=== PATIENT | male | born 1960 | race Caucasian/White ===

== ENCOUNTER 2016-09-09 11:01 | Emergency (ER) | payer OTHER, BC ==
--- NOTE | 2016-09-09 11:26 | ERNOTE ---
<Koki eLe - Last Filed: 09/09/16 13:21> Abdominal HPI - Narrative Date of Service: 09/09/16 - General Chief Complaint: Abdominal Pain Time Seen by Provider: 09/09/16 11:12 Source: patient Exam Limitations: no limitations - Immun/Allergies/Home Medications Immunizatons: IMMUNIZATION HX Immunizations Up to Date Yes Allergies/Adverse Reactions: Allergies morphine Adverse Reaction (Verified 09/09/16 11:11) Other sweatin, spinning Home Medications: HOME MEDICATIONS Atorvastatin Calcium 10 mg PO DAILY 09/09/16 [Last Taken Unknown] Colchicine 0.6 mg PO DAILY 09/09/16 [Last Taken Unknown] Cyclobenzaprine HCl 10 mg PO TID 09/09/16 [Last Taken Unknown] Gabapentin 100 mg PO TID 09/09/16 [Last Taken Unknown] Metoprolol Succinate [Toprol Xl] 100 mg PO BID 09/09/16 [Last Taken Unknown] OXcarbazepine [Oxcarbazepine] 300 mg PO BID 09/09/16 [Last Taken Unknown] Olmesartan Medoxomil [Benicar] 40 mg PO DAILY 09/09/16 [Last Taken Unknown] metFORMIN HCL [Metformin HCl ER] 1,000 mg PO DAILY 09/09/16 [Last Taken Unknown] oxyCODONE HCL/ACETAMINOPHEN [Percocet 10-325 mg Tablet] 1 each PO Q6H 09/09/16 [ Last Taken Unknown] rOPINIRole HCL [Requip] 0.5 mg PO HS 09/09/16 [Last Taken Unknown] - History of Present Illness Narrative: Pt. comes in with c/o mid abdominal pain that pt. has had for months but worsened after lifting a case of cans at work. Pt. denies any SOB, CP, NVD, constipation, fevers, chills, recent illness, prehospital treatment, alleviating factors but does state that movement exacerbates the pain. Review of Systems - Review of Systems Constitutional: Present: no symptoms reported. Absent: recent illness, fever, chills, weakness, fatigue, malaise EYE: Present: no symptoms reported ENT: Present: no symptoms reported Respiratory: Present: no symptoms reported. Absent: shortness of breath, cough , wheezing Cardiology: Present: no symptoms reported. Absent: chest pain, palpitations, edema Gastrointestinal/Abdominal: Present: abdominal pain - mid. Absent: nausea, vomiting, diarrhea Genitourinary: Present: no symptoms reported Musculoskeletal: Present: no symptoms reported. Absent: back pain, joint pain Skin: Present: no symptoms reported Neurological: Present: no symptoms reported Endocrine: Present: no symptoms reported Hematologic/Lymphatic: Present: no symptoms reported All Other Systems: All systems neg except as marked - Patient's Past Medical History Patient History - Medical: Chronic Pain, Diabetes Type 2 Patient History - Cardiac/Respiratory: Hypertension, Hyperlipidemia Patient History - Cancer: No Hx of Cancer Patient History - Surgical Procedures: Orthopedic - Social History Smoking Status: Never smoker Have you smoked in the past 12 months: No - Immunizations Immunizations Up to Date: Yes Physical Exam - Physical Exam General Appearance: Present: wd/wn, alert, no apparent distress Eye Exam: Normal inspection: bilateral, PERRL: bilateral, EOMI: bilateral Ears, Nose, Throat: Present: normal ENT inspection, normal pharynx Neck: Present: normal inspection, nontender. Absent: lymphadenopathy (R), lymphadenopathy (L) Respiratory: Present: no respiratory distress, normal breath sounds, no accessory muscle use, chest nontender, lungs clear Cardiovascular/Chest: Present: regular rate, rhythm, no murmur, normal peripheral pulses Gastrointestinal/Abdominal: Present: normal bowel sounds, no organomegaly, tenderness - throughout, distended, hernia - lower ventral or umbilical. Absent : rebound Back Exam: Present: normal inspection, normal range of motion, no CVA tenderness , no vertebral tenderness Extremity Exam: Present: normal inspection, non-tender, normal range of motion, no edema Neurological Exam: Present: alert, oriented, normal mood/affect, no motor/ sensory deficits, sustainability officer II-XII nml as tested, normal cerebellar test Skin Exam: Present: normal color, warm/dry. Absent: pallor, skin rash ED Progress - Date and Time Seen: Date and Time: 09/09/16 12:[address] Beltrán and he recommends obtaining CT scan. - Results and Orders Patient's Lab Results:: I have reviewed the patient's lab results. - Vital Signs Patient's Vital Signs:: I have reviewed the patient's vital signs. Vital Signs: Vital Signs 09/09/16 11:05 Temperature 36.6 C Pulse Rate 89 Respiratory 14 Rate Blood Pressure 154/99 O2 Sat by Pulse 95 Oximetry - X-Ray X-Ray #1 X-Ray: abdomen Interpretation: Reviewed by me X-ray Comments: unable to evaluate properly due to pt. body habitus but non obstructive bowel gas pattern identified. - Progress/Reassessment Chief Complaint: Abdominal Pain - Transfer of Care Physician Sign Out: Koki Lee Receiving Physician: Jasiel Gaspar Pending Results: CT/MRI results Departure - Departure Clinical Impression: Constipation due to opioid therapy Abdominal pain Qualifiers: Abdominal location: unspecified location Qualified Code(s): R10.9 - Unspecified abdominal pain Disposition: Home Follow Up Needed Condition: Stable Instructions: Constipation, Adult, [id number], Hernia, Adult, [id number], Form - Excuse from Work, School, or Physical Activity Additional Instructions: Continue all previous home medications as directed. Follow-up with your primary care physician as needed. He may need to take medications to help promote bowel movements. Return to the emergency room if symptoms return or persist. Referrals: Bridger Headley MD [Primary Care Provider] - <Jasiel Gaspar - Last Filed: 09/09/16 15:32> Abdominal HPI - Immun/Allergies/Home Medications Immunizatons: IMMUNIZATION HX Immunizations Up to Date Yes ED Progress - Vital Signs Vital Signs: Vital Signs 09/09/16 09/09/16 09/09/16 11:05 11:50 12:24 Temperature 36.6 C 36.5 C Pulse Rate 89 95 89 Respiratory 14 16 16 Rate Blood Pressure 154/99 150/99 150/88 O2 Sat by Pulse 95 96 96 Oximetry 09/09/16 09/09/16 12:53 13:19 Temperature Pulse Rate 92 89 Respiratory 16 Rate Blood Pressure 134/99 161/89 O2 Sat by Pulse 95 96 Oximetry - EKG EKG: NSR EKG read: Reviewed by me EKG Comments: reviewed and interpreted by ER Attending - X-Ray X-Ray #1 X-ray Comments: Abdomen Flat W/ Upright *: Underpenetrated film due to patient's body habitus. Multiple images obtained due to patient's body habitus. Surgical clips seen in the right upper quadrant of the abdomen. No subdiaphragmatic free air. No abnormal dilation of large or small bowel. Rounded calcifications with central lucencies within the right side of the pelvis most likely phleboliths. Osseous structures are intact. Degenerative changes of the thoracolumbar spine and bilateral hips noted. IMPRESSION: 1. Nonobstructive bowel gas pattern. 2. Additional comments as above. Electronically signed by Lorrie Shen M.D.. - CT/Ultrasound CT/Ultrasound Narrative: [facility] PATIENT RADIOLOGY STUDY REPORT Patient Patient Name:HOLA JIMENEZ Date: 1960 Sex: M Order Number: [id number] Unique Exam ID: [id number] Exam Requested: ABDPELW - CT Abdomen/Pelvis W/ Contrast Date Scheduled: Study Priority: Requesting Service: Requesting Physician: Koki Lee Reason for Exam: large hiatal hernia, felt tearing and enlarging Radiological Report : Exam Date: 09/09/2016 12:02 Ordering Physician: Koki Lee Indication: large hiatal hernia, felt tearing and enlarging Comparison: Plain film same day Technique: CT Abdomen/Pelvis W/ Contrast Findings: Lung bases are grossly clear. There is fatty infiltration of the liver. No focal hepatic parenchymal enhancement. There is a calcified granuloma within the liver. No intrahepatic biliary ductal dilatation. The gallbladder is surgically absent. The pancreas is unremarkable. The spleen is within normal limits. Adrenal glands are also within normal limits. Kidneys enhance homogenously and excrete symmetrically. No evidence for nephrolithiasis or obstructive uropathy. There are likely benign cysts seen within both mid poles. Vasculature is unremarkable. No evidence for large hiatal hernia. Stomach is decompressed limiting evaluation but grossly unremarkable. No evidence for intestinal obstruction appreciated. No pericolonic inflammatory change. There is diverticulosis. Bladder is unremarkable. Prostate is normal. No free air or free fluid. No loculated fluid collections. There is a fat- containing ventral hernia measuring approximately 4 cm. Osseous structures are intact. No adenopathy. IMPRESSION: 1. No acute intra-abdominal or pelvic process 2. Fatty infiltration of the liver 3. 4 cm ventral fat-containing hernia 4. For the remainder of chronic findings please see above Electronically signed by Niko Dickey M.D.. - Progress/Reassessment Progress:: Improved Plan - Plan Plan: try to have a BM. follow up with PCP.
[2016-09-09 11:32] LABS: Hemoglobin 15.2 gm/dL (13.5-18.0); Mean Cell Volume 90.7 fl (78-100); Mean Corpuscular Hemoglobin 31.3 pg (27-31); Mean Corpuscular Hgb Conc 34.5 g/dl (32-36); Neutrophil % 51.8 % (42-75.0); Platelet Count 199 K/mm3 (150-450); Red Blood Count 4.85 M/mm3 (4.7-6.0); Red Cell Distribution Width 12.1 % (11.5-14.0); White Blood Count 7.7 K/mm3 (4.0-10.5)
[2016-09-09 11:41] LABS: Urine Bilirubin Negative (NEGATIVE); Urine Blood Negative /ul (NEGATIVE); Urine Ketone Negative (NEGATIVE); Urine Nitrite Negative (NEGATIVE); Urine Protein Negative (NEGATIVE); Urine Specific Gravity >=1.030 SP.GR. (1.005-1.030); Urine Urobilinogen Normal (NORMAL); Urine pH 5.5 pH (5.0-7.0)
[2016-09-09 11:47] LABS: Urine Appearance Clear; Urine Bacteria TRACE; Urine Color Yellow; Urine RBC None Seen /hpf (0-5)
[2016-09-09 11:48] LABS: Albumin * 3.9 gm/dl (3.4-5.0); BUN/Creatinine Ratio 11.8 (9.0-21.6); Bilirubin, Total 0.4 mg/dL (0.0-1.1); Ca. Corrected For Albumin 8.7 mg/dL (8.4-10.2); Calcium * 8.9 mg/dL (7.9-10.9); Potassium 4.2 mmol/L (3.4-4.6); Total Protein 7.3 gm/dL (6.2-8.2)
[2016-09-09 11:52] LABS: Anion Gap 16.7 mmol/L (6.8-13.8); Carbon Dioxide 23.5 mmol/L (24-32.6)
[2016-09-09] MEDS ORDERED: DIATRIZOATE MEGLU/DIATRIZO SOD 30 ML BTL PO ONE (12:06)
--- OUTSIDE RECORDS SUMMARY | 2016-09-09 12:07 | XMS REPORT | Continuity of Care Document ---
:1960 Author Organization [facility] Address [address] [place] [address] Phone [phone] Care Team Providers Name Role Phone Stanley Lemons Primary Care Provider [phone] Source Comments This disclosure is being made pursuant to the Care Everywhere program, applicable federal and state laws, and may not contain all informaitonavailable regarding this patient.[facility] Active Allergies and Adverse Reactions Allergen Noted Date Severity Reactions Comments Morphine 01/13/2011 OTHER excessive sweating, vomiting, dizziness Current Medications Prescription Sig. Disp. Refills Start Date End Date Status metoPROLol (TOPROL XL) Take 100 mg by mouth Active 100 mg XL tablet daily. ascorbic acid Take 500 mg by mouth Active (ASCORBIC ACID) 500 mg daily. tablet MULTIVITAMIN/IRON/FOLI Take by mouth daily. Active C ACID (DAILY MULTI PO) docusate 100 mg Take 1 Cap by mouth 2 60 Cap 0 02/09/2011 Active capsule times daily. Indications: Constipation ciprofloxacin 500 mg Take 1 Tab by mouth 6 Tab 0 04/15/2011 Active tablet every 12 hours. Indications: TURP oxyCODONE-acetaminophe Take 1-2 Tabs by 60 Tab 0 04/15/2011 Active n 5-325 mg per tablet mouth every 4 hours as needed for Pain. Indications: Pain tamsulosin (FLOMAX) Take 1 Cap by mouth 90 Cap 3 06/10/2011 Active 0.4 mg ER capsule daily. Indications: Benign Prostatic Hypertrophy Active Problems Problem Noted Date BPH (benign prostatic hyperplasia) 06/17/2011 Nephrolithiasis 06/17/2011 Immunizations Name Dates Previously Given Next Due Influenza, unspecified 02/21/2011 Social History Tobacco Use Types Packs/Day Years Used Date Never Smoker Alcohol Use Drinks/Week oz/Week Comments No Last Filed Vital Signs Vital Sign Reading Time Taken Blood Pressure 171/98 06/10/2011 3:09 PM [employer] Pulse 73 06/10/2011 3:09 PM [employer] Temperature 37 C (98.6 F) 06/10/2011 3:09 PM [employer] Respiratory Rate 16 04/15/2011 8:00 AM [employer] Height 1.83 m (6' 0.05") 04/14/2011 3:54 PM [employer] Weight 147.9 kg (326 lb 1 oz) 04/15/2011 6:00 AM [employer] Body Mass Index 44.16 04/15/2011 6:00 AM [employer] Oxygen Saturation 97% 04/15/2011 8:00 AM [employer] Plan of Care Health Maintenance Due Date Last Done Comments HCV Screening 1960 Hepatitis B Vaccine (1 of 3 - Primary Series) 1960 Tdap Vaccine 08/03/1970 Lipid Disorder Screening 08/03/1977 MMR Vaccine 08/03/1977 Td Vaccine 08/03/1977 Colonoscopy 08/03/2009 Prostate Cancer Screening 08/03/2009 Influenza Vaccine: Seasonal (#1) 12/23/2015 02/21/2011 Results from Last 3 Months Not on file
--- OUTSIDE RECORDS SUMMARY | 2016-09-09 12:07 | XMS REPORT | Continuity of Care Document ---
:1960 Author Organization [employer] [facility] [employer] [place] [address] Care Team Providers Name Role Phone Bridger Headley Primary Care Provider [phone] Source Comments This disclosure is being made pursuant to the [employer] program and maynot contain all information available regarding this patient.[employer] [facility] [employer] Active Allergies and Adverse Reactions Not on File Current Medications Be aware that medications may not be up to date as of this document. Alwaysverify current medications with the patient. Not on file Active Problems Not on file Social History Tobacco Use Types Packs/Day Years Used Date Never Assessed Plan of Care Health Maintenance Due Date Last Done Comments Hepatitis C Screening 08/03/1977 Tetanus/Pertussis (1 - Tdap) 08/03/1978 Colonoscopy 08/03/2009 Well Adult Visit 08/03/2009 Influenza Immunization (#1) 2016 Results from Last 3 Months Not on file
[2016-09-09] MEDS ORDERED: DIATRIZOATE MEGLU/DIATRIZO SOD 30 ML BTL ONE (12:08)
[2016-09-09] MEDS ORDERED: KETOROLAC TROMETHAMINE 30 MG/ML VIAL IV ONE (12:13)
[2016-09-09] MEDS ORDERED: KETOROLAC TROMETHAMINE 30 MG/ML VIAL ONE (12:21)
[2016-09-09] MEDS ORDERED: DICYCLOMINE HCL 10 MG/ML AMPUL IM ONE ×2 (12:58→13:04)
[2016-09-09 15:29] VITALS: BP 136/88
== END 2016-09-09 15:43 | disposition home or self-care (01) ==
LOC: ER 11:01
DX: K59.03 Drug induced constipation (principal); R10.9 Unspecified abdominal pain; T40.2X5A Adverse effect of other opioids, initial encounter; E11.9 Type 2 diabetes mellitus without complications; I10 Essential (primary) hypertension; E78.5 Hyperlipidemia, unspecified; G89.29 Other chronic pain